=== PATIENT | female | born 1995 | race Two or more races ===

== ENCOUNTER 2019-08-14 02:48 | Inpatient (IN) | payer OTHER ==
[~2019-08-14] VITALS: Ht 172.7 cm; Wt 67.1 kg
[~2019-08-14 02:48] MED LIST: PRENATAL1 TAB
[2019-08-17] MEDS ORDERED: ACETAMINOPHEN-1 EAC2 PO ×2 (08:28)
== END 2019-08-17 11:05 | DRG 819 ==
LOC: ER 02:48 → O/R 09:42 → OB/GYN 09:42
PROVIDERS: ADMIT Specialist; ATTEND Specialist
PROC: 10T20ZZ Resection of Products of Conception, Ectopic, Open Approach (ICD-10-PCS; 2019-08-14)
PROC: 0UB00ZZ Excision of Right Ovary, Open Approach (ICD-10-PCS; 2019-08-14)
PROC: 0UDB7ZZ Extraction of Endometrium, Via Natural or Artificial Opening (ICD-10-PCS; 2019-08-14)
PROC: 0UB50ZZ Excision of Right Fallopian Tube, Open Approach (ICD-10-PCS; principal; 2019-08-14 11:15)
DX: O00.101 Right tubal pregnancy without intrauterine pregnancy (principal); D25.9 Leiomyoma of uterus, unspecified; O34.11 Maternal care for benign tumor of corpus uteri, first trimester; O34.81 Maternal care for other abnormalities of pelvic organs, first trimester; N83.11 Corpus luteum cyst of right ovary; Z3A.01 Less than 8 weeks gestation of pregnancy
CPT/HCPCS: 72195

== ENCOUNTER 2019-08-22 17:36 | Emergency (ER) | payer OTHER ==
[~2019-08-22] VITALS: Ht 172.7 cm; Wt 64.4 kg
[~2019-08-22 17:36] MED LIST changes: +ACETAMINOPHEN-1 EAC2 PO
[2019-08-22] MEDS ORDERED: BENADRYL (18:18)
== END 2019-08-23 12:04 | disposition home or self-care (01) ==
LOC: ER 17:36
DX: N71.0 Acute inflammatory disease of uterus (principal); R10.13 Epigastric pain; R21 Rash and other nonspecific skin eruption

== ENCOUNTER 2019-10-18 07:28 | Inpatient (IN) | payer OTHER ==
[~2019-10-18] VITALS: Ht 172.7 cm; Wt 63.0 kg
[~2019-10-18 07:28] MED LIST changes: +BENADRYL
[2019-10-19] MEDS ORDERED: BENADRYL25 MG (11:48)
== END 2019-10-22 09:44 | disposition home or self-care (01) | DRG 742 ==
LOC: O/R 10-19 07:51 → OB/GYN 10-19 07:51
PROVIDERS: ADMIT Specialist; ATTEND Specialist
PROC: 0UT90ZZ Resection of Uterus, Open Approach (ICD-10-PCS; principal; 2019-10-19 11:45)
PROC: 30233N1 Transfusion of Nonautologous Red Blood Cells into Peripheral Vein, Percutaneous Approach (ICD-10-PCS; 2019-10-20)
DX: D25.1 Intramural leiomyoma of uterus (principal); D62 Acute posthemorrhagic anemia; N72 Inflammatory disease of cervix uteri; N93.8 Other specified abnormal uterine and vaginal bleeding